=== PATIENT | female | born 1960 | race Caucasian/White ===

== ENCOUNTER → 2017-07-22 12:03 | Outpatient (CLI) | payer BC, SELFPAY ==
--- NOTE | 2017-07-22 | DI.US.S_ITS ---
PROCEDURE: US THYROID INDICATIONS: MULTINODULAR GOITER TECHNIQUE: Real-time scanning was performed of the thyroid gland, with image documentation. COMPARISON: None. FINDINGS: Right: Thyroid lobe measures 5.0 x 1.5 x 1.7 cm, and is homogeneous in echotexture. Left: Thyroid lobe measures 4.4 x 2.7 x 2.6 cm, and is homogenous in echotexture. Isthmus: 3.0 mm thick. Nodule number: 1 Location: Left mid inferior Size: 3.5 x 2.4 x 2.5 cm. Composition: Solid Echogenicity: 2 echoic Shape: wider than tall. Margins: Smooth Echogenic foci: None Total points: 4 ACR TI-RADS category: Moderately suspicious Nodule number: 2 Location: Right mid Size: 1.1 x 0.7 x 0.9 cm. Composition: Solid Echogenicity: Hypoechoic Shape: wider than tall. Margins: Smooth Echogenic foci: None Total points: 4 ACR TI-RADS category: Moderately suspicious IMPRESSION: Moderately suspicious bilateral thyroid nodules, the largest of which is on the left and given the size of the nodule fine needle aspiration is recommended. Recommended continued sonographic surveillance of the right thyroid nodule as below. ACR TI-RADS definitions and recommendations: TI-RADS 1 (benign): 0 points. FNA not needed. TI-RADS 2 (not suspicious): 2 points. FNA not needed. TI-RADS 3 (mildly suspicious): 3 points. * FNA if 2.5 cm or larger, follow up if 1.5 cm or larger (at 1, 3, and 5 years). TI-RADS 4 (moderately suspicious): 4-6 points. * FNA if 1.5 cm or larger, follow up if 1 cm or larger (at 1, 2, 3, and 5 years). TI-RADS 5 (highly suspicious): 7 points or more. * FNA if 1 cm or larger, follow up if 0.5 cm or larger (every year for 5 years). Dictated by: Shane SHANKAR Interpreted: Gordon Sorenson MD on 07/22/2017 at 14:09 Approved by: Gordon Sorenson M.D. on 07/22/2017 at 15:16
== END ==
PROVIDERS: PCP Family Medicine; Visit Provider Otolaryngology Facial Plastic Surgery
DX: E04.2 Nontoxic multinodular goiter (principal)
CPT/HCPCS: 76536

== ENCOUNTER → 2017-12-24 13:14 | Outpatient (CLI) | payer BC, SELFPAY ==
--- NOTE | 2017-12-24 | DI.MG.S_ITS ---
BILATERAL DIGITAL DIAGNOSTIC MAMMOGRAM 3D/2D: 12/24/2017 CLINICAL: Left breast pain. Comparison is made to exams dated: 07/04/2016 mammogram, 11/05/2014 mammogram, 04/30/2014 mammogram, and 10/30/2013 ultrasound - [facility]. There are scattered fibroglandular elements in both breasts. There are triangular markers overlying the skin of the inferior left breast and upper outer left breast/axilla at the site of the patient's reported pain and the patient's referring provider's reported palpable abnormalities. There is no underlying mammographic abnormality. No significant masses, calcifications, or other findings are seen in either breast. IMPRESSION: INCOMPLETE: NEEDS ADDITIONAL IMAGING EVALUATION No mammographic abnormality in the inferior left breast and upper outer left breast/axilla to correlate with the site of the patient's reported pain and the patient's referring provider's reported palpable abnormalities. Targeted diagnostic ultrasound recommended for further evaluation, which will be performed immediately following this exam. This exam was interpreted at Station ID: [id number]. NOTE: For mammograms, a report in lay terms will be sent to the patient. Approximately 15% of breast malignancies will not be visualized mammographically. In the management of a palpable breast mass, a negative mammogram must not discourage biopsy of a clinically suspicious lesion. Electronically Signed By: Ray Romero M.D. ecl/:12/24/2017 14:11:28 copy to: Isa Card MD, Dr. Isa Card letter sent: Additional Imaging Needed ACR BI-RADS Category 0: Incomplete 3340F
--- NOTE | 2017-12-24 | DI.US.S_ITS ---
LIMITED ULTRASOUND OF LEFT BREAST AND AXILLA: 12/24/2017 CLINICAL: Focal left breast pain. Comparison is made to exams dated: 12/24/2017 mammogram - [facility], 07/04/2016 mammogram, and 11/05/2014 mammogram - [facility]. Real-time and Doppler ultrasound of the left breast 6 o'clock, and upper outer left breast/axilla regions were performed. Dumont scale images of the real-time examination were reviewed. Targeted ultrasound of the areas of focal pain in the lower left breast and upper outer left breast/axilla was performed. There is an echogenic biopsy clip in the left breast at the 6 o'clock position 3 cm from the nipple, with no associated mass or abnormality. There is no mass or abnormality in the upper outer left breast/axilla. IMPRESSION: BENIGN 1) There is an echogenic biopsy clip in the left breast at the 6 o'clock position 3 cm from the nipple, with no associated mass or abnormality. It is unlikely for the biopsy clip to represent a source of pain. Clinical follow-up for further evaluation and management of symptoms suggested. 2) There is no mass or abnormality in the upper outer left breast/axilla. Clinical follow-up for further evaluation and management of symptoms suggested. 2) There is no sonographic evidence of malignancy in the imaged left breast. Return to annual mammogram screening schedule is recommended. These results and recommendations were discussed with the patient by Dr. Romero by telephone at 2:52pm pm on 12/24/17. The patient was advised to monitor her breasts and to return sooner for re-evaluation should she feel anything grow or change. This exam was interpreted at Station ID: [id number]. Electronically Signed By: Ray Romero M.D. ecl/:12/26/2017 08:28:57 copy to: Isa Card MD, Dr. Isa Card letter sent: Clinical Evaluation Ultrasound BI-RADS: 2 Benign
== END ==
PROVIDERS: PCP Family Medicine; Visit Provider Family Medicine
DX: R92.8 Other abnormal and inconclusive findings on diagnostic imaging of breast (principal); N64.4 Mastodynia
CPT/HCPCS: 76642; 77066; G0279

== ENCOUNTER → 2018-07-01 07:33 | Outpatient (CLI) | payer BC, SELFPAY ==
--- NOTE | 2018-07-01 | DI.US.S_ITS ---
PROCEDURE: US THYROID INDICATIONS: GOITER MULTINODULAR TECHNIQUE: Real-time scanning was performed of the thyroid gland, with image documentation. COMPARISON: [facility], US, US THYROID, 07/22/2017, 12:18. FINDINGS: Right: Thyroid lobe measures 5 x 1.4 x 1.7 cm. Left: Thyroid lobe measures 5.8 x 2.7 x 2.6 cm. Isthmus: 2 mm thick. Nodule number: 1 Location: Left mid thyroid Size: 3.7 x 2.8 x 2.6 cm, previously measuring 3.5 x 2.4 x 2.5. Composition: Solid Echogenicity: Hypoechoic Shape: wider than tall. Margins: Smooth Echogenic foci: None Total points: 4 ACR TI-RADS category: 4, moderately suspicious. Nodule number: 2 Location: Right mid thyroid Size: 1 x 0.6 x 0.9 cm, previously measuring 1.1 x 0.7 x 0.9 cm. Composition: Solid Echogenicity: Hypoechoic Shape: wider than tall. Margins: Smooth Echogenic foci: None Total points: 4 ACR TI-RADS category: 4, moderately suspicious. IMPRESSION: Bilateral thyroid nodules are seen, which are stable compared to the prior. Normally, an ultrasound guided thyroid biopsy of the dominant nodule on the left would be recommended. However, a history is given that this nodule was previously biopsied with benign results. Please correlate with precise patient clinical records. Please consider annual follow up, as clinically appropriate. ACR TI-RADS definitions and recommendations: TI-RADS 1 (benign): 0 points. FNA not needed. TI-RADS 2 (not suspicious): 2 points. FNA not needed. TI-RADS 3 (mildly suspicious): 3 points. * FNA if 2.5 cm or larger, follow up if 1.5 cm or larger (at 1, 3, and 5 years). TI-RADS 4 (moderately suspicious): 4-6 points. * FNA if 1.5 cm or larger, follow up if 1 cm or larger (at 1, 2, 3, and 5 years). TI-RADS 5 (highly suspicious): 7 points or more. * FNA if 1 cm or larger, follow up if 0.5 cm or larger (every year for 5 years). Dictated by: Nilson Berg M.D. on 07/01/2018 at 8:17 Approved by: Nilson Berg M.D. on 07/01/2018 at 8:20
== END ==
PROVIDERS: PCP Family Medicine; Visit Provider Otolaryngology Facial Plastic Surgery
DX: E04.2 Nontoxic multinodular goiter (principal)
CPT/HCPCS: 76536

== ENCOUNTER → 2018-12-23 16:58 | Outpatient (CLI) | payer BC, SELFPAY ==
--- NOTE | 2018-12-23 17:01 | DI.MG.S_ITS ---
BILATERAL DIGITAL SCREENING MAMMOGRAM 3D/2D WITH CAD: 12/23/2018 CLINICAL: Routine screening. Family history of breast cancer. Comparison is made to exams dated: 12/24/2017 mammogram - [facility], 07/04/2016 mammogram, and 11/05/2014 mammogram - [facility]. The tissue of both breasts is heterogeneously dense. This may lower the sensitivity of mammography. Current study was also evaluated with a Computer Aided Detection (CAD) system. There is a 0.6 cm equal density asymmetry in the left breast posterior depth lateral region seen on the craniocaudal view only. This is more prominent. No other significant masses, calcifications, or other findings are seen in either breast. IMPRESSION: INCOMPLETE: NEEDS ADDITIONAL IMAGING EVALUATION The 0.6 cm equal density asymmetry in the left breast is indeterminate. Additional views with possible ultrasound are recommended. This exam was interpreted at Station ID: [id number]. NOTE: For mammograms, a report in lay terms will be sent to the patient. Approximately 15% of breast malignancies will not be visualized mammographically. In the management of a palpable breast mass, a negative mammogram must not discourage biopsy of a clinically suspicious lesion. Electronically Signed By: Leland delgado/tristin:12/24/2018 07:34:39 copy to: Isa Card MD, Dr. Isa Card letter sent: Additional Imaging Needed ACR BI-RADS Category 0: Incomplete 3340F
== END ==
PROVIDERS: PCP Family Medicine; Visit Provider Family Medicine
DX: Z12.31 Encounter for screening mammogram for malignant neoplasm of breast (principal); Z80.3 Family history of malignant neoplasm of breast
CPT/HCPCS: 77063; 77067

== ENCOUNTER → 2019-01-21 13:55 | Outpatient (CLI) | payer BC, SELFPAY ==
--- NOTE | 2019-01-21 | DI.US.S_ITS ---
ULTRASOUND OF LEFT BREAST: 01/21/2019 CLINICAL: Patient returns today to evaluate a focal asymmetry in the left breast on screening mammo, not seen on diagnostic mammo. Patient insists on U/S. Comparison is made to exams dated: 01/21/2019 mammogram, 12/23/2018 mammogram, 12/24/2017 ultrasound, and 12/24/2017 mammogram - [facility]. Color flow and real-time ultrasound of the left breast were performed. Dumont scale images of the real-time examination were reviewed. No significant abnormalities were seen sonographically in the left breast. IMPRESSION: NEGATIVE There is no sonographic evidence of malignancy. There is no abnormality seen in the right breast to correspond with the area of concern /mammography finding which likely represented normal fibroglandular tissue. A 1 year screening mammogram is recommended. This exam was interpreted at Station ID: [id number]. Electronically Signed By: Leland Leon M.D. aty/:01/21/2019 14:54:04 copy to: Isa Card MD, Dr. Isa Card letter sent: Normal Exam Ultrasound BI-RADS: 1 Negative
--- NOTE | 2019-01-21 | DI.MG.S_ITS ---
UNILATERAL LEFT DIGITAL DIAGNOSTIC MAMMOGRAM 3D/2D WITH ADDITIONAL VIEWS: 01/21/2019 CLINICAL: Additional evaluation requested from prior study. Comparison is made to exams dated: 12/23/2018 mammogram, 12/24/2017 mammogram - [facility], and 07/04/2016 mammogram - [facility]. The tissue of left breast is heterogeneously dense. This may lower the sensitivity of mammography. The 0.6 cm equal density asymmetry in the left breast posterior depth lateral region seen on the craniocaudal view only is no longer seen and likely represented summation artifact. No other significant masses or calcifications are seen in the breast. IMPRESSION: INCOMPLETE: NEEDS ADDITIONAL IMAGING EVALUATION An ultrasound is recommended to confirm the no longer seen equal density asymmetry in the left breast posterior depth lateral region seen on the craniocaudal view only. The ultrasound is scheduled to immediately follow this exam. This exam was interpreted at Station ID: [id number]. NOTE: For mammograms, a report in lay terms will be sent to the patient. Approximately 15% of breast malignancies will not be visualized mammographically. In the management of a palpable breast mass, a negative mammogram must not discourage biopsy of a clinically suspicious lesion. Electronically Signed By: Leland Leon M.D. aty/:01/21/2019 14:51:03 copy to: Isa Card MD, Dr. Isa Card ACR BI-RADS Category 0: Incomplete 3340F
== END ==
PROVIDERS: PCP Family Medicine; Visit Provider Family Medicine
DX: R92.8 Other abnormal and inconclusive findings on diagnostic imaging of breast (principal)
CPT/HCPCS: 76642; 77065; G0279

== ENCOUNTER → 2019-08-19 10:38 | Outpatient (CLI) | payer BC, SELFPAY ==
--- NOTE | 2019-08-19 | DI.US.S_ITS ---
PROCEDURE: US THYROID INDICATIONS: NONTOXIC SINGLE THYROID NODULE TECHNIQUE: Real-time scanning was performed of the thyroid gland, with image documentation. COMPARISON: [facility], US, US THYROID, 07/01/2018, 7:55. FINDINGS: Right: Thyroid lobe measures 5.1 x 1.7 x 1.7 cm, and is homogeneous in echotexture. Left: Thyroid lobe measures 5.8 x 2.7 x 2.8 cm, and is homogenous in echotexture. Isthmus: 2.8 mm thick. Nodule number: 1 Location: Left mid Size: Unchanged at 2.8 x 3.7 x 2.6 cm. Composition: Solid Echogenicity: Hypoechoic Shape: wider than tall. Margins: Smooth Echogenic foci: None Total points: 4 ACR TI-RADS category: Moderately suspicious Nodule number: 2 Location: Right mid Size: Unchanged 1.0 x .6 x 0.9 cm. Composition: Solid Echogenicity: Hypoechoic Shape: wider than tall. Margins: Smooth Echogenic foci: None Total points: 4 ACR TI-RADS category: Moderately suspicious Nodule number: 3 Location: Right inferior Size: 0.7 x 0.5 x 0.7 cm. Composition: Spongiform Echogenicity: S hypoechoic hape: wider than tall. Margins: Smooth Echogenic foci: Internal punctate echogenic foci Total points: 5 ACR TI-RADS category: Moderately suspicious IMPRESSION: Stable appearance of bilateral thyroid nodules and there is a new right inferior thyroid nodule measuring up to 7 mm. Recommend continued followup ultrasound as detailed below. ACR TI-RADS definitions and recommendations: TI-RADS 1 (benign): 0 points. FNA not needed. TI-RADS 2 (not suspicious): 2 points. FNA not needed. TI-RADS 3 (mildly suspicious): 3 points. * FNA if 2.5 cm or larger, follow up if 1.5 cm or larger (at 1, 3, and 5 years). TI-RADS 4 (moderately suspicious): 4-6 points. * FNA if 1.5 cm or larger, follow up if 1 cm or larger (at 1, 2, 3, and 5 years). TI-RADS 5 (highly suspicious): 7 points or more. * FNA if 1 cm or larger, follow up if 0.5 cm or larger (every year for 5 years). Dictated by: Shane SHANKAR Interpreted: Isaac Ramirez MD on 08/19/2019 at 13:29 Approved by: Isaac Ramirez M.D. on 08/19/2019 at 14:02
== END ==
PROVIDERS: PCP Family Medicine; Referring Provider Family Medicine; Visit Provider Otolaryngology Facial Plastic Surgery
DX: E04.2 Nontoxic multinodular goiter (principal)
CPT/HCPCS: 76536

== ENCOUNTER → 2020-04-02 12:41 | Outpatient (CLI) | payer BC, SELFPAY ==
--- NOTE | 2020-04-02 | DI.MG.S_ITS ---
BILATERAL DIGITAL SCREENING MAMMOGRAM 3D/2D WITH CAD: 04/02/2020 CLINICAL: Routine screening. Family history of breast cancer. Comparison is made to exams dated: 12/23/2018 mammogram, 12/24/2017 mammogram - [facility], and 07/04/2016 mammogram - [facility]. The tissue of both breasts is heterogeneously dense. This may lower the sensitivity of mammography. Current study was also evaluated with a Computer Aided Detection (CAD) system. No significant masses, calcifications, or other findings are seen in either breast. There has been no significant interval change. IMPRESSION: NEGATIVE There is no mammographic evidence of malignancy. A 1 year screening mammogram is recommended. This exam was interpreted at Station ID: [id number]. NOTE: For mammograms, a report in lay terms will be sent to the patient. Approximately 15% of breast malignancies will not be visualized mammographically. In the management of a palpable breast mass, a negative mammogram must not discourage biopsy of a clinically suspicious lesion. Electronically Signed By: Isaac Ramirez M.D., jr/tristin:04/04/2020 08:46:38 copy to: Isa Card MD, Dr. Isa Card letter sent: Normal Exam ACR BI-RADS Category 1: Negative 3341F
== END ==
PROVIDERS: PCP Family Medicine; Referring Provider Family Medicine; Visit Provider Family Medicine
DX: Z12.31 Encounter for screening mammogram for malignant neoplasm of breast (principal); Z80.3 Family history of malignant neoplasm of breast
CPT/HCPCS: 77063; 77067

== ENCOUNTER → 2020-07-21 09:38 | Outpatient (CLI) | payer BC, SELFPAY ==
[2020-07-21 20:08] LABS: Add Manual Diff / Slide Review NO; Basophils Absolute Auto 0 /uL (0-100); Basophils Percent Auto 0.7 % (0-2); Eosinophils Absolute Auto 100 /uL (0-450); Eosinophils Percent Auto 2.4 % (2-4); Hematocrit 42.8 % (36-46); Hemoglobin 13.6 g/dL (12.0-16.0); Lymphocytes Absolute Auto 1700 /uL (1100-4500); Lymphocytes Percent Auto 30.4 % (25-40); Mean Corpuscular HGB Conc 31.8 % (30-36); Mean Corpuscular Hemoglobin 28.7 PG (26-34); Mean Corpuscular Volume 90.4 fL (80-100); Monocytes Absolute Auto 500 /uL (0-900); Monocytes Percent Auto 9.2 % (3-14); Neutrophils Absolute Auto 3200 /uL (1500-7000); Neutrophils Percent Auto 57.3 % (50-75); Platelet Count 295 X10^3/uL (150-400); Red Blood Cell Count 4.74 X10^6/uL (4.0-5.2); Red Cell Distribution Width 13.9 % (11.6-14.8); White Blood Cell Count 5.6 X10^3/uL (4.5-11.0)
[2020-07-21 20:28] LABS: Alanine Aminotransferase 40 IU/L (<35); Albumin 4.2 g/dL (3.5-5.0); Albumin Globulin Ratio 1.5 (1.0-2.8); Alkaline Phosphatase 56 U/L (38-126); Aspartate Aminotransferase 37 IU/L (14-36); BUN Creatinine Ratio 21.6 (6-22); Bilirubin Total 0.4 mg/dL (0.2-1.3); Blood Urea Nitrogen 11 mg/dL (7-17); Calcium 10.2 mg/dL (8.4-10.2); Carbon Dioxide 29 mmol/L (22-32); Chloride 104 mmol/L (98-107); Cholesterol 185 mg/dL (140-199); Creatine Kinase 48 U/L (30-135); Estimated Glomerular Filt Rate > 60.0 mL/min (>60); Globulin 2.8 g/dL (1.7-4.1); Glucose 95 mg/dL (70-100); HDL Cholesterol 63 mg/dL (40-60); HEMOLYSIS < 15 (0-50); LDL Cholesterol Calculated 93 mg/dL (<100); Potassium 4.5 mmol/L (3.4-5.1); Sodium 140 mmol/L (137-145); Triglycerides 143 mg/dL (35-150)
[2020-07-21 20:35] LABS: Free T3, Triiodothyronine Free 3.97 pg/mL (2.77-5.27)
[2020-07-21 20:49] LABS: TSH w/ Reflex to FT4 0.79 uIU/mL (0.47-4.68)
== END ==
PROVIDERS: PCP Family Medicine; Visit Provider Physician Assistant
DX: E03.9 Hypothyroidism, unspecified (principal); E78.5 Hyperlipidemia, unspecified; Z86.2 Personal history of diseases of the blood and blood-forming organs and certain disorders involving the immune mechanism
CPT/HCPCS: 80053; 80061; 82550; 84443; 84481; 85025

== ENCOUNTER → 2020-11-21 08:33 | Outpatient (CLI) | payer BC, SELFPAY ==
[2020-11-21 19:13] LABS: Alanine Aminotransferase 29 IU/L (<35); Albumin 4.2 g/dL (3.5-5.0); Albumin Globulin Ratio 1.5 (1.0-2.8); Alkaline Phosphatase 58 U/L (38-126); Aspartate Aminotransferase 33 IU/L (14-36); Bilirubin Total 0.4 mg/dL (0.2-1.3); Blood Urea Nitrogen 14 mg/dL (7-17); Calcium 9.9 mg/dL (8.4-10.2); Carbon Dioxide 31 mmol/L (22-32); Chloride 101 mmol/L (98-107); Cholesterol 252 mg/dL (140-199); Estimated Glomerular Filt Rate > 60.0 mL/min (>60); Globulin 2.8 g/dL (1.7-4.1); Glucose 94 mg/dL (70-100); HDL Cholesterol 57 mg/dL (40-60); HEMOLYSIS < 15 (0-50); LDL Cholesterol Calculated 146 mg/dL (<100); Potassium 4.6 mmol/L (3.4-5.1); Sodium 139 mmol/L (137-145); Triglycerides 245 mg/dL (35-150)
== END ==
PROVIDERS: PCP Physician Assistant; Referring Provider Physician Assistant; Visit Provider Physician Assistant
DX: R74.8 Abnormal levels of other serum enzymes (principal); E78.5 Hyperlipidemia, unspecified
CPT/HCPCS: 80053; 80061

== ENCOUNTER → 2021-01-19 09:38 | Outpatient (CLI) | payer BC, SELFPAY ==
[2021-01-19 19:01] LABS: Cholesterol 212 mg/dL (140-199); HDL Cholesterol 55 mg/dL (40-60); LDL Cholesterol Calculated 86 mg/dL (<100); Triglycerides 355 mg/dL (35-150)
== END ==
PROVIDERS: PCP Physician Assistant; Visit Provider Family Medicine
DX: E78.5 Hyperlipidemia, unspecified (principal)
CPT/HCPCS: 80061

== ENCOUNTER → 2021-02-07 10:37 | Outpatient (CLI) | payer BC, SELFPAY ==
--- NOTE | 2021-02-07 10:39 | DI.US.S_ITS ---
PROCEDURE: US THYROID INDICATIONS: NODULES TECHNIQUE: Real-time scanning was performed of the thyroid gland, with image documentation. COMPARISON: [facility], US, US THYROID, 07/22/2017, 12:18. [facility], US, US THYROID, 07/01/2018, 7:55. [facility], US, US THYROID, 08/19/2019, 11:02. FINDINGS: Right: Thyroid lobe measures 4.3 x 1.2 x 1.6 cm. Left: Thyroid lobe measures 5.6 x 2.9 x 3.1 cm. Isthmus: 2.5 mm thick. Nodule number: 1 Location: Left mid thyroid Size: 3.9 x 2.3 x 2.8 cm, prior 3.7 x 2.8 x 2.6 cm. Composition: Solid Echogenicity: Hypoechoic Shape: wider than tall. Margins: Smooth Echogenic foci: None. Total points: 4 ACR TI-RADS category: 4 Nodule number: 2 Location: Right mid thyroid Size: 0.8 x 0.4 x 0.8 cm, prior 1 x 0.6 x 0.9 cm. Composition: Solid Echogenicity: Hypoechoic Shape: wider than tall. Margins: Smooth Echogenic foci: None Total points: 4 ACR TI-RADS category: 4 Nodule number: 3 Location: Right inferior thyroid Size: 0.8 x 0.5 x 0.8 cm, prior 0.7 x 0.5 x 0.7cm. Composition: Spongiform Echogenicity: Hypoechoic Shape: Wider than tall Margins: Smooth Echogenic foci: None. Total points: 3 ACR TI-RADS category: 3 IMPRESSION: Bilateral thyroid nodules are seen. The most suspicious of these nodules is seen within the left mid thyroid, which is similar to the prior examinations. By published criteria, a follow-up study in 2 years would be recommended for the left-sided nodule. ACR TI-RADS definitions and recommendations: TI-RADS 1 (benign): 0 points. FNA not needed. TI-RADS 2 (not suspicious): 2 points. FNA not needed. TI-RADS 3 (mildly suspicious): 3 points. * FNA if 2.5 cm or larger, follow up if 1.5 cm or larger (at 1, 3, and 5 years). TI-RADS 4 (moderately suspicious): 4-6 points. * FNA if 1.5 cm or larger, follow up if 1 cm or larger (at 1, 2, 3, and 5 years). TI-RADS 5 (highly suspicious): 7 points or more. * FNA if 1 cm or larger, follow up if 0.5 cm or larger (every year for 5 years). Dictated by: Nilson Berg M.D. on 02/07/2021 at 10:47 Approved by: Nilson Berg M.D. on 02/07/2021 at 10:51
== END ==
PROVIDERS: PCP Family Medicine; Referring Provider Family Medicine; Visit Provider Family Medicine
DX: E04.2 Nontoxic multinodular goiter (principal)
CPT/HCPCS: 76536

== ENCOUNTER → 2021-04-03 10:36 | Outpatient (CLI) | payer BC, SELFPAY ==
[2021-04-03 11:46] LABS: Add Manual Diff / Slide Review NO; Basophils Absolute Auto 100 /uL (0-100); Basophils Percent Auto 1.2 % (0-2); Eosinophils Absolute Auto 100 /uL (0-450); Eosinophils Percent Auto 1.9 % (2-4); Hematocrit 41.3 % (36-46); Hemoglobin 13.8 g/dL (12.0-16.0); Lymphocytes Absolute Auto 1900 /uL (1100-4500); Lymphocytes Percent Auto 36.7 % (25-40); Mean Corpuscular HGB Conc 33.3 % (30-36); Mean Corpuscular Hemoglobin 29.1 PG (26-34); Mean Corpuscular Volume 87.5 fL (80-100); Monocytes Absolute Auto 400 /uL (0-900); Monocytes Percent Auto 8.3 % (3-14); Neutrophils Absolute Auto 2700 /uL (1500-7000); Neutrophils Percent Auto 51.9 % (50-75); Platelet Count 343 X10^3/uL (150-400); Red Blood Cell Count 4.72 X10^6/uL (4.0-5.2); Red Cell Distribution Width 13.4 % (11.6-14.8); White Blood Cell Count 5.2 X10^3/uL (4.5-11.0)
[2021-04-03 12:13] LABS: Alanine Aminotransferase 34 IU/L (<35); Albumin 5.1 g/dL (3.5-5.0); Albumin Globulin Ratio 1.8 (1.0-2.8); Alkaline Phosphatase 50 U/L (38-126); Aspartate Aminotransferase 32 IU/L (14-36); BUN Creatinine Ratio 21.7 (6-22); Bilirubin Total 0.6 mg/dL (0.2-1.3); Blood Urea Nitrogen 13 mg/dL (7-17); Calcium 9.9 mg/dL (8.4-10.2); Carbon Dioxide 29 mmol/L (22-32); Chloride 102 mmol/L (98-107); Cholesterol 193 mg/dL (140-199); Estimated Glomerular Filt Rate > 60.0 mL/min (>60); Globulin 2.9 g/dL (1.7-4.1); Glucose 99 mg/dL (70-100); HDL Cholesterol 84 mg/dL (40-60); Potassium 4.8 mmol/L (3.4-5.1); Sodium 138 mmol/L (137-145); Triglycerides 218 mg/dL (35-150)
[2021-04-03 12:14] LABS: HEMOLYSIS < 15 (0-50); LDL Cholesterol Calculated 65 mg/dL (<100)
== END ==
PROVIDERS: PCP Family Medicine; Referring Provider Family Medicine; Visit Provider Family Medicine
DX: R03.0 Elevated blood-pressure reading, without diagnosis of hypertension (principal)
CPT/HCPCS: 36415; 80053; 80061; 85025

== ENCOUNTER → 2021-05-16 11:38 | Outpatient (CLI) | payer BC, SELFPAY ==
--- NOTE | 2021-05-16 | DI.MG.S_ITS ---
BILATERAL DIGITAL DIAGNOSTIC MAMMOGRAM 3D/2D: 05/16/2021 CLINICAL: Diffuse left breast pain. Comparison is made to exams dated: 04/02/2020 mammogram, 01/21/2019 ultrasound, 01/21/2019 mammogram, 12/23/2018 mammogram, 12/24/2017 mammogram, and 12/24/2017 ultrasound - . The tissue of both breasts is heterogeneously dense. This may lower the sensitivity of mammography. There is a biopsy clip in the left breast. No significant masses, calcifications, or other findings are seen in either breast. IMPRESSION: NEGATIVE There is no abnormality seen in the left breast to correspond with the pain in the inferior aspect, however, clinical followup is recommended. There is no mammographic evidence of malignancy. A 1 year screening mammogram is recommended. This exam was interpreted at Station ID: [id number]. NOTE: For mammograms, a report in lay terms will be sent to the patient. Approximately 15% of breast malignancies will not be visualized mammographically. In the management of a palpable breast mass, a negative mammogram must not discourage biopsy of a clinically suspicious lesion. Electronically Signed By: Fei escobedo/tristin:05/16/2021 12:23:02 copy to: Isa Card MD, Dr. Isa Card letter sent: Clinical Evaluation ACR BI-RADS Category 1: Negative 3341F
== END ==
PROVIDERS: PCP Family Medicine; Referring Provider Family Medicine; Visit Provider Family Medicine
DX: N64.4 Mastodynia (principal)
CPT/HCPCS: 77066; G0279

== ENCOUNTER → 2022-01-26 09:08 | Outpatient (CLI) | payer BC, SELFPAY ==
[2022-01-26 11:13] LABS: TSH w/ Reflex to FT4 0.25 uIU/mL (0.47-4.68)
[2022-01-26 12:58] LABS: Free T4, Direct Thyroxine 1.81 ng/dL (0.78-2.19)
== END ==
PROVIDERS: PCP Family Medicine; Referring Provider Family Medicine; Visit Provider Family Medicine
DX: E03.9 Hypothyroidism, unspecified (principal)
CPT/HCPCS: 36415; 84439; 84443

== ENCOUNTER → 2022-02-16 08:53 | Outpatient (CLI) | payer BC, SELFPAY ==
[2022-02-16 09:27] LABS: Add Manual Diff / Slide Review NO; Basophils Absolute Auto 100 /uL (0-100); Eosinophils Absolute Auto 100 /uL (0-450); Eosinophils Percent Auto 1.5 % (2-4); Hematocrit 40.7 % (36-46); Hemoglobin 13.4 g/dL (12.0-16.0); Lymphocytes Absolute Auto 2100 /uL (1100-4500); Lymphocytes Percent Auto 37.7 % (25-40); Mean Corpuscular HGB Conc 32.9 % (30-36); Mean Corpuscular Hemoglobin 28.9 PG (26-34); Monocytes Absolute Auto 500 /uL (0-900); Monocytes Percent Auto 8.9 % (3-14); Neutrophils Absolute Auto 2800 /uL (1500-7000); Neutrophils Percent Auto 50.9 % (50-75); Platelet Count 303 X10^3/uL (150-400); Red Blood Cell Count 4.62 X10^6/uL (4.0-5.2); Red Cell Distribution Width 14.1 % (11.6-14.8); White Blood Cell Count 5.6 X10^3/uL (4.5-11.0)
[2022-02-16 09:50] LABS: Erythrocyte Sedimentation Rate 8 MM/HR (0-20)
[2022-02-16 10:04] LABS: Alanine Aminotransferase 25 IU/L (<35); Albumin 4.5 g/dL (3.5-5.0); Albumin Globulin Ratio 1.5 (1.0-2.8); Alkaline Phosphatase 49 U/L (38-126); Aspartate Aminotransferase 24 IU/L (14-36); BUN Creatinine Ratio 20.4 (6-22); Bilirubin Total 0.5 mg/dL (0.2-1.3); Blood Urea Nitrogen 11 mg/dL (7-17); C-Reactive Protein Quant < 0.5 mg/dL (<1.0); Calcium 9.6 mg/dL (8.4-10.2); Carbon Dioxide 30 mmol/L (22-32); Chloride 99 mmol/L (98-107); Cholesterol 290 mg/dL (140-199); Estimated Glomerular Filt Rate > 60 mL/min (>60); Glucose 97 mg/dL (80-110); HDL Cholesterol 67 mg/dL (40-60); HEMOLYSIS < 15 (0-50); LDL Cholesterol Calculated 193 mg/dL (<100); Potassium 4.3 mmol/L (3.4-5.1); Sodium 137 mmol/L (137-145); Total Protein 7.5 g/dL (6.3-8.2); Triglycerides 151 mg/dL (35-150)
== END ==
PROVIDERS: PCP Family Medicine; Referring Provider Family Medicine; Visit Provider Family Medicine
DX: E03.9 Hypothyroidism, unspecified (principal); E04.2 Nontoxic multinodular goiter; E78.5 Hyperlipidemia, unspecified; I10 Essential (primary) hypertension; R14.0 Abdominal distension (gaseous); R68.84 Jaw pain; R74.8 Abnormal levels of other serum enzymes
CPT/HCPCS: 36415; 80053; 80061; 85025; 85651; 86140

== ENCOUNTER → 2022-08-01 09:10 | Outpatient (CLI) | payer BC, SELFPAY ==
[2022-08-01 10:46] LABS: Erythrocyte Sedimentation Rate 7 MM/HR (0-20)
[2022-08-01 11:08] LABS: C-Reactive Protein Quant < 0.5 mg/dL (<1.0)
== END ==
PROVIDERS: PCP Family Medicine; Referring Provider Family Medicine; Visit Provider Family Medicine
DX: R22.9 Localized swelling, mass and lump, unspecified (principal)
CPT/HCPCS: 36415; 85651; 86140

== ENCOUNTER → 2022-08-01 10:19 | Outpatient (CLI) | payer BC, SELFPAY ==
--- NOTE | 2022-08-01 | DI.US.S_ITS ---
LIMITED ULTRASOUND OF LEFT BREAST AND AXILLA: 08/01/2022 CLINICAL: Focal left breast pain. Comparison is made to exams dated: 08/01/2022 mammogram, 05/16/2021 mammogram, 04/02/2020 mammogram, 01/21/2019 ultrasound, 01/21/2019 mammogram, and 12/23/2018 mammogram - [facility]. Color flow and real-time ultrasound of the left breast upper inner and lower outer quadrants and axilla regions were performed. Dumont scale images of the real-time examination were reviewed. No significant abnormalities were seen sonographically in the left breast or the left axilla. IMPRESSION: NEGATIVE There is no sonographic evidence of malignancy. Exam findings were conveyed to the patient. Patient is advised to monitor for significant change. Clinical follow-up as needed. A 1 year screening mammogram is recommended. This exam was interpreted at Station ID: [id number]. Electronically Signed By: Suman Davidson M.D. slc/:08/01/2022 11:39:47 copy to: Isa Card MD, Dr. Isa Card letter sent: Normal Exam Ultrasound BI-RADS: 1 Negative
--- NOTE | 2022-08-01 | DI.MG.S_ITS ---
BILATERAL DIGITAL DIAGNOSTIC MAMMOGRAM 3D/2D: 08/01/2022 CLINICAL: Left breast pain. Comparison is made to exams dated: 05/16/2021 mammogram, 04/02/2020 mammogram, 01/21/2019 ultrasound, 01/21/2019 mammogram, and 12/23/2018 mammogram - [facility]. Both breasts are heterogeneously dense, which may obscure small masses (category c / 51-75% glandular tissue). No significant masses, calcifications, or other findings are seen in either breast. IMPRESSION: INCOMPLETE: NEEDS ADDITIONAL IMAGING EVALUATION No mammographic evidence of malignancy. A targeted ultrasound is recommended and will immediately follow. Based on the Tyrer Cuzick model (a risk assessment model) the patient's lifetime risk is 16.3% and her 10 year risk is 7.0%. According to the ACR, ACS, and NCCN guidelines, an annual breast MRI exam along with mammogram is recommended if the patient's lifetime risk is 20% or greater. This exam was interpreted at Station ID: [id number]. NOTE: For mammograms, a report in lay terms will be sent to the patient. Approximately 15% of breast malignancies will not be visualized mammographically. In the management of a palpable breast mass, a negative mammogram must not discourage biopsy of a clinically suspicious lesion. Electronically Signed By: Suman Davidson M.D. slc/:08/01/2022 11:36:49 copy to: Isa Card MD, Dr. Isa Card ACR BI-RADS Category 0: Incomplete 3340F
== END ==
PROVIDERS: PCP Family Medicine; Referring Provider Family Medicine; Visit Provider Family Medicine
DX: R92.2 Inconclusive mammogram; N64.4 Mastodynia
CPT/HCPCS: 36415; 76642; 77066; 85651; 86140; G0279

== ENCOUNTER → 2022-08-21 07:49 | Outpatient (CLI) | payer BC, SELFPAY ==
--- NOTE | 2022-08-21 | DI.MRI.S_ITS ---
PROCEDURE: MR CERVICAL SPINE WO CON INDICATIONS: SWELLING OF SOFT TISSUE OF CERVICAL SPINE TECHNIQUE: Noncontrast sagittal T1 spin echo and T2 fast spin echo, sagittal STIR, foraminal oblique sagittal T2 fast spin echo, and axial gradient echo or T2 fast spin echo through the cervical spine. COMPARISON: [facility], US, US FINE NEEDLE ASPIRATION THYROID, 04/25/2022, 11:25. [facility] Ultrasound, US, US THYROID, 03/08/2022, 11:15. FINDINGS: Image quality: Excellent. Alignment and Curvature: There is straightening of the normal cervical lordosis. No focal AP alignment abnormality is seen. Bone Marrow: Marrow demonstrates normal overall signal. Spinal Cord: Visualized spinal cord has normal size and signal. No cerebellar tonsillar herniation. Paraspinous Soft Tissues: A 3.3 cm left thyroid nodule can be seen. Prevertebral soft tissues are normal in thickness. C2-C3: No significant abnormality is seen. C3-C4: The disc height is well-preserved. Loss of disc signal is seen at this level. Mild generalized disc bulge is seen. There is at least moderate right-sided and mild left-sided facet arthropathy seen. There is moderate right-sided and minimal left-sided neural foraminal narrowing. Mild to moderate central canal narrowing is seen. C4-C5: Mild loss of disc height and disc signal can be seen. A mild degree of generalized disc osteophyte complex is seen. Mild to moderate facet hypertrophy is seen. There is minimal right-sided and moderate left-sided neural foraminal narrowing. Mild central canal narrowing is seen. C5-C6: Moderate loss of disc height is seen. Loss of disc signal is seen. A remote appearing Schmorl's node can be seen along the superior endplate of the C6 vertebral body. Moderate generalized disc osteophyte complex is seen. Moderate facet joint hypertrophy is seen. There is at least moderate bilateral neural foraminal narrowing seen, right worse than left. Moderate central canal narrowing is seen. There is associated mass effect upon the ventral spinal cord. C6-C7: The disc height is well-preserved. Loss of disc signal is seen at this level. Mild disc osteophyte complex is seen, with a mild central disc protrusion. Mild to moderate facet is seen. No significant neural foraminal narrowing can be seen. Mild central canal narrowing is seen. C7-T1: Mild loss of disc height is seen. Loss of disc signal is seen. Mild to moderate disc osteophyte complex is seen, which is eccentric to the right. Mild to moderate facet hypertrophy can be seen. No significant neural foraminal or central canal narrowing can be seen. IMPRESSION: Multiple levels of cervical spine degenerative change can be seen, which are overall worst at the C5-C6 level. 3.3 cm left thyroid nodule seen, which has been previously biopsied. Dictated by: Nilson Berg M.D. on 08/21/2022 at 12:27 Approved by: Nilson Berg M.D. on 08/21/2022 at 12:32
== END ==
PROVIDERS: PCP Family Medicine; Referring Provider Family Medicine; Visit Provider Family Medicine
DX: M47.812 Spondylosis without myelopathy or radiculopathy, cervical region (principal); R22.1 Localized swelling, mass and lump, neck; E04.1 Nontoxic single thyroid nodule
CPT/HCPCS: 72141

== ENCOUNTER → 2022-09-13 09:18 | Outpatient (CLI) | payer BC, SELFPAY ==
[2022-09-13 10:45] LABS: Cholesterol 184 mg/dL (140-199); HDL Cholesterol 66 mg/dL (40-60); LDL Cholesterol Calculated 100 mg/dL (<100); Triglycerides 89 mg/dL (35-150)
== END ==
PROVIDERS: PCP Family Medicine; Referring Provider Otolaryngology Facial Plastic Surgery; Visit Provider Otolaryngology Facial Plastic Surgery
DX: E04.2 Nontoxic multinodular goiter (principal); M25.519 Pain in unspecified shoulder
CPT/HCPCS: 36415; 80061; 84436

== ENCOUNTER → 2022-11-08 09:45 | Outpatient (CLI) | payer OTHER, SELFPAY ==
--- NOTE | 2022-11-08 | DI.RAD.S_ITS ---
PROCEDURE: XR CERVICAL SPINE 4V OR 5V INDICATIONS: Radiculopathy, cervical region TECHNIQUE: 5 views of the cervical spine were acquired. COMPARISON: None. FINDINGS: Bones: No fractures or dislocations to the T1 level. Degenerative disc disease at C5-6 with disc space narrowing and anterior osteophytes. No suspicious bony lesions. There is leftward curvature of the cervical spine. There is normal range of motion between flexion and extension, with preserved normal bony alignment. Soft tissues: Prevertebral soft tissues are normal in thickness. IMPRESSION: Degenerative disc disease at C5-6. Dictated by: Tolu Pinedo M.D. on 11/08/2022 at 10:18 Approved by: Tolu Pinedo M.D. on 11/08/2022 at 10:21
--- NOTE | 2022-11-08 | DI.RAD.S_ITS ---
Bone Density Report Name: JACKY BAEZ Age: 62 Sex: Female Ethnicity: White Date of : 1960 Indication: postmenopausal; screening for osteoporosis; Referring Provider: JENNIFER BRADY Study: Bone densitometry was performed. Exam Date: November 08, 2022 Accession number: [id number] Bone Density: Region BMD T-score Z-score Classification AP Spine(L1-L4) 0.939 -1.0 0.5 Normal Femoral Neck (Left) 0.611 -2.1 -0.8 Osteopenia Total Hip (Left) 0.805 -1.1 -0.1 Osteopenia Femoral Neck (Right) 0.658 -1.7 -0.4 Osteopenia Total Hip (Right) 0.811 -1.1 -0.1 Osteopenia Total Hip Mean 0.808 -1.1 -0.1 Osteopenia World Health Organization criteria for BMD impression classify patients as: Normal (T-score at or above -1.0), Osteopenia (T-score between -1.0 and -2.5), or Osteoporosis (T-score at or below -2.5). 10-year Fracture Risk(1): Major Osteoporotic Fracture 9.0% Hip Fracture 1.4% Reported Risk Factors: [place] (), Neck BMD=0.611, BMI=19.6 (1) FRAX(R) Version 3.08. Fracture probability calculated for an untreated patient. Fracture probability may be lower if the patient has received treatment. Impression: The patient has low bone mass, based on the Left Femoral Neck T-score. The patient has an estimated ten-year risk of hip fracture of 1.4% and an estimated ten-year risk of major fracture of 9%, based on the WHO FRAX algorithm. Discussion: BONE DENSITY IS LOW AT ONE OR MORE SKELETAL SITES. This patient's lowest T-score is low at one or more skeletal sites. It meets the World Health Organization's (WHO) criteria for low bone mass (T-score between -1.0 and -2.5). The patient's 10-year risk of fracture as calculated by FRAX is less than the threshold where pharmacological therapy is recommended by the National Osteoporosis Foundation (NOF). However, all treatment decisions require clinical judgment and consideration of individual patient factors, including patient preferences, comorbidities, previous drug use, risk factors not captured in the FRAX model (e.g., frailty, falls, vitamin D deficiency, increased bone turnover, interval significant decline in bone density) and possible under or overestimation of fracture risk by FRAX. The patient should follow a healthful lifestyle (good nutrition with adequate calcium and vitamin D, and appropriate weight-bearing exercise). Follow-Up: Consider repeating this study in 2 to 3 years to reassess this patient's status, or sooner if there is some new clinical indication. Reported by: TOSIN ROMERO M.D. on 11/08/2022 10:24:00 AM.
== END ==
PROVIDERS: PCP Family Medicine; Referring Provider Neurological Surgery; Visit Provider Neurological Surgery
DX: Z13.820 Encounter for screening for osteoporosis (principal); M50.122 Cervical disc disorder at C5-C6 level with radiculopathy; M85.852 Other specified disorders of bone density and structure, left thigh; E03.9 Hypothyroidism, unspecified; Z78.0 Asymptomatic menopausal state
CPT/HCPCS: 72040; 77080

== ENCOUNTER → 2022-11-12 09:50 | Outpatient (CLI) | payer OTHER, SELFPAY ==
--- NOTE | 2022-11-12 | DI.CT.S_ITS ---
PROCEDURE: CT CERVICAL SPINE WO CON INDICATIONS: Radiculopathy, cervical region TECHNIQUE: Noncontrast 3 mm thick sections acquired from the skull base to the T4 level. Sagittal and coronal reformats were then constructed. For radiation dose reduction, the following was used: automated exposure control, adjustment of mA and/or kV according to patient size. COMPARISON: None. FINDINGS: Image quality: Excellent. Bones: No fractures or dislocations. Visualized superior ribs are intact. Soft tissues: Prevertebral soft tissues are normal in thickness. No paravertebral hematomas. No apical pneumothoraces. Discs: C2-3: No significant disc bulge. The foramina and central canal are patent. C3-4: No significant disc bulge. The foramina and central canal are patent. C4-5: No significant disc bulge. The foramina and central canal are patent. C5-6: Disc space narrowing, endplate degenerative changes with sclerosis, and anterior osteophytes. Uncovertebral hypertrophy, worse on the right. Moderate right and mild left foraminal stenosis. The central canal is patent. C6-7: No significant disc bulge. The foramina and central canal are patent. C7-T1: No significant disc bulge. The foramina and central canal are patent. IMPRESSION: 1. Degenerative disc disease at C5-6 causing moderate right and mild left foraminal stenosis primarily due to endplate degenerative changes and uncovertebral hypertrophy. 2. No central canal stenosis is identified, however this would be better evaluated with MRI. Dictated by: Tolu Pinedo M.D. on 11/12/2022 at 10:12 Approved by: Tolu Pinedo M.D. on 11/12/2022 at 10:17
== END ==
PROVIDERS: PCP Family Medicine; Referring Provider Neurological Surgery; Visit Provider Neurological Surgery
DX: M50.122 Cervical disc disorder at C5-C6 level with radiculopathy (principal); M48.02 Spinal stenosis, cervical region
CPT/HCPCS: 72125

== ENCOUNTER → 2023-03-29 10:03 | Outpatient (CLI) | payer OTHER, SELFPAY | PROVIDERS: PCP Family Medicine; Referring Provider Family Medicine; Visit Provider Family Medicine | DX: I10 Essential (primary) hypertension (principal) | CPT/HCPCS: 36415; 83735 ==

== ENCOUNTER → 2023-04-29 11:13 | Outpatient (CLI) | payer OTHER, SELFPAY ==
--- NOTE | 2023-04-29 | DI.US.S_ITS ---
PROCEDURE: US CAROTID DOPPLER BI INDICATIONS: HYPERTENSION TECHNIQUE: Color and pulse Doppler interrogation was performed of both carotid systems, with image documentation and velocity measurements. COMPARISON: None. FINDINGS: Stenosis calculations are based on SRU (Society of Radiologists in Ultrasound) criteria. Right side: Brachial blood pressure: 122/72 mm Hg. Common carotid artery peak systolic velocity: 95 cm/sec. Internal carotid artery peak systolic velocity: 68 cm/sec. Internal carotid artery end diastolic velocity: 20 cm/sec. External carotid artery peak systolic velocity: 74 cm/sec. ICA/CCA peak systolic ratio: 0.7. Dumont scale imaging description: No significant atherosclerotic plaque Percent internal carotid artery stenosis: None. Vertebral artery: Flow direction is antegrade. Left side: Brachial blood pressure: 118/79 mm Hg. Common carotid artery peak systolic velocity: 114 cm/sec. Internal carotid artery peak systolic velocity: 73 cm/sec. Internal carotid artery end diastolic velocity: 32 cm/sec. External carotid artery peak systolic velocity: 65 cm/sec. ICA/CCA peak systolic ratio: 0.6. Dumont scale imaging description: No significant atherosclerotic plaque Percent internal carotid artery stenosis: None. Vertebral artery: Flow direction is antegrade. IMPRESSION: No hemodynamically significant stenosis of the internal carotid arteries bilaterally. Approved by: Fei Hood M.D. on 04/29/2023 at 14:57
== END ==
LOC: US 11:14
PROVIDERS: PCP Family Medicine; Referring Provider Internal Medicine Cardiovascular Disease; Visit Provider Internal Medicine Cardiovascular Disease
DX: E78.49 Other hyperlipidemia (principal); I10 Essential (primary) hypertension; Z82.49 Family history of ischemic heart disease and other diseases of the circulatory system
CPT/HCPCS: 93880

== ENCOUNTER → 2023-06-03 10:58 | Outpatient (CLI) | payer OTHER, SELFPAY ==
[2023-06-03 12:18] LABS: Cholesterol 160 mg/dL (140-199); HDL Cholesterol 80 mg/dL (40-60); LDL Cholesterol Calculated 44 mg/dL (<100); Triglycerides 178 mg/dL (35-150)
[2023-06-06 07:20] LABS: Lipoprotein (a) 196.8 nmol/L (<75.0)
== END ==
LOC: LAB 10:59
PROVIDERS: PCP Family Medicine; Referring Provider Internal Medicine Cardiovascular Disease; Visit Provider Internal Medicine Cardiovascular Disease
DX: E78.5 Hyperlipidemia, unspecified (principal); E78.49 Other hyperlipidemia; I10 Essential (primary) hypertension
CPT/HCPCS: 36415; 80061; 83695

== ENCOUNTER → 2023-11-08 08:34 | Outpatient (CLI) | payer OTHER, SELFPAY ==
--- NOTE | 2023-11-08 08:35 | DI.MG.S_ITS ---
BILATERAL DIGITAL DIAGNOSTIC MAMMOGRAM 3D/2D: 11/08/2023 CLINICAL: Left breast pain. Comparison is made to exams dated: 08/01/2022 mammogram, 05/16/2021 mammogram, and 04/02/2020 mammogram - [facility]. The breasts are heterogeneously dense, which may obscure small masses (category c / 51-75% glandular tissue). No significant masses, calcifications, or other findings are seen in either breast. IMPRESSION: NEGATIVE There is no abnormality seen in the left breast to correspond with the diffuse pain in the upper outer quadrant, however, clinical followup is recommended. There is no mammographic evidence of malignancy. Return to annual mammogram screening schedule is recommended. Based on the Tyrer Cuzick model (a risk assessment model) the patient's lifetime risk is 15.9% and her 10 year risk is 7.1%. According to the ACR, ACS, and NCCN guidelines, an annual breast MRI exam along with mammogram is recommended if the patient's lifetime risk is 20% or greater. This exam was interpreted at Station ID: [id number]. NOTE: For mammograms, a report in lay terms will be sent to the patient. Approximately 15% of breast malignancies will not be visualized mammographically. In the management of a palpable breast mass, a negative mammogram must not discourage biopsy of a clinically suspicious lesion. Electronically Signed By: Fei escobedo/tristin:11/08/2023 20:38:22 copy to: Isa Card MD, Dr. Isa Card letter sent: Clinical Evaluation ACR BI-RADS Category 1: Negative
== END ==
LOC: MAMMO 08:35
PROVIDERS: PCP Family Medicine; Referring Provider Family Medicine; Visit Provider Family Medicine
DX: R92.2 Inconclusive mammogram (principal); R92.333 Mammographic heterogeneous density, bilateral breasts
CPT/HCPCS: 77066; G0279

== ENCOUNTER → 2023-11-26 06:53 | Outpatient (CLI) | payer OTHER, SELFPAY ==
--- NOTE | 2023-11-26 06:54 | DI.US.S_ITS ---
PROCEDURE: US PELVIC COMPLETE INDICATIONS: LEIOMYOMA OF UTERUS/BREAST PAIN LT TECHNIQUE: Real-time scanning was performed of the pelvic organs, with image documentation. Additional endovaginal scanning was necessary due to incomplete visualization of the adnexal and endometrial structures by transabdominal scanning. COMPARISON: None. FINDINGS: Uterus: Uterus is retroverted and normal in size at 5.8 x 3.2 x 6.7 cm. The myometrium is heterogeneous with diffuse myometrial calcifications. The endometrium measures 3 mm combined thickness. Multiple uterine fibroids are seen. There is a posterior transmural 5.5 x 3.6 x 3.9 cm fibroid. A left anterior intramural fibroid measures 2.0 x 2.1 x 2.4 cm. A right anterior intramural fibroid measures 1.0 x 0.8 x 0.9 cm. Ovaries: Ovaries are not visualized. No suspicious adnexal mass. Other: No pathologic free abdominal or pelvic fluid. IMPRESSION: Multiple uterine fibroids, the largest of which measures up to 5.5 cm in maximum dimension. Approved by: Fei Hood M.D. on 11/26/2023 at 13:13
--- NOTE | 2023-11-26 06:55 | DI.US.S_ITS ---
LIMITED ULTRASOUND OF LEFT BREAST AND AXILLA: 11/26/2023 CLINICAL: Palpable left breast lump 12:00 (felt by clinician since 11-08-23 mammo). Also pain at ax tail. Comparison is made to exams dated: 11/08/2023 mammogram, 08/01/2022 ultrasound, 08/01/2022 mammogram, 05/16/2021 mammogram, 04/02/2020 mammogram, and 01/21/2019 ultrasound - [facility]. Real-time ultrasound of the left breast 12-1 o'clock, and axilla regions was performed. Dumont scale images of the real-time examination were reviewed. No significant abnormalities were seen sonographically in the left breast or the left axilla. IMPRESSION: NEGATIVE No sonographic evidence of malignancy in the region of the palpable abnormality or pain. Exam findings were conveyed to the patient. Patient is advised to monitor for significant change. Clinical follow-up as needed. A 1 year screening mammogram is recommended. Breast MRI could be considered for further evaluation. This exam was interpreted at Station ID: [id number]. Electronically Signed By: Suman Davidson M.D. [facility]/:11/26/2023 07:59:00 Entry: - 11/27/2023 15:45:16 copy to: Isa Card MD, Dr. Isa Card letter sent: Normal Exam ACR BI-RADS Category 1: Negative
== END ==
LOC: US 06:54
PROVIDERS: PCP Family Medicine; Referring Provider Family Medicine; Visit Provider Family Medicine
DX: N64.4 Mastodynia (principal); D25.1 Intramural leiomyoma of uterus
CPT/HCPCS: 76642; 76830; 76856

== ENCOUNTER → 2024-05-19 08:36 | Outpatient (CLI) | payer OTHER, SELFPAY ==
[2024-05-19 09:25] LABS: Cholesterol 165 mg/dL (140-199); HDL Cholesterol 74 mg/dL (40-60); LDL Cholesterol Calculated 72 mg/dL (<100); Triglycerides 95 mg/dL (35-150)
[2024-05-21 03:08] LABS: Lipoprotein (a) 227.8 nmol/L (<75.0)
== END ==
PROVIDERS: PCP Family Medicine; Referring Provider Internal Medicine Cardiovascular Disease; Visit Provider Internal Medicine Cardiovascular Disease
DX: E78.5 Hyperlipidemia, unspecified (principal); E78.49 Other hyperlipidemia; I10 Essential (primary) hypertension
CPT/HCPCS: 36415; 80061; 83695

== ENCOUNTER → 2024-08-26 11:27 | Outpatient (CLI) | payer OTHER, SELFPAY ==
--- NOTE | 2024-08-26 11:29 | DI.US.S_ITS ---
MM diagnostic mammo BI, US breast LT limited: 08/26/2024 BI-RADS: 1 CLINICAL: 64-year old female for bilateral diagnostic mammogram and left diagnostic breast ultrasound. Tyrer-Cuzick lifetime risk of 14.4%. No personal or first- degree family history of breast cancer. Current reported family history of breast cancer: maternal aunt and third maternal aunt. The patient reports testing negative for BRCA gene mutation. The patient reports a palpable abnormality (more than 2 years) and pain (more than 2 years) in the left breast. The patient had a prior left breast biopsy. PRIOR EXAMS 11/08/2023, 08/01/2022, 05/16/2021, 04/02/2020, MAMMOGRAPHY TECHNIQUE: 2D and 3D (tomosynthesis) digital mammographic views obtained, with additional images as needed for full coverage. Current study was also evaluated with a Computer Aided Detection (CAD) system. ULTRASOUND TECHNIQUE Real-time kwok scale imaging of the area of clinical interest was performed with image documentation. TARGETED Right Breast Ultrasound: Real-time ultrasound exam was performed focused to area of clinical and/or imaging concern. DENSITY C. The breasts are heterogeneously dense, which may obscure small masses. MAMMOGRAPHY FINDINGS Right: No suspicious mass, asymmetry, microcalcification, or other abnormality seen. Left (finding-1): Upper Inner Quadrant, Anterior depth: There is no suspicious mammographic finding to account for concern by the patient of a palpable lump. No suspicious mass, asymmetry, microcalcification, or other abnormality seen. Left (finding-2): Inner at 9:00, Anterior depth: There is no suspicious mammographic finding to account for concern by the patient of pain/tenderness. No suspicious mass, asymmetry, microcalcification, or other abnormality seen. ULTRASOUND FINDINGS Left (finding-1): Upper Inner at 11:00, 4 cm from nipple: There is no sonographic abnormality to account for concern by the patient of a palpable lump. Left (finding-2): Inner at 9:00: The area from 9 o'clock, 1 to 7 cm from the nipple was scanned. There is no sonographic abnormality to account for concern by the patient of pain/tenderness. IMPRESSION: * No evidence of malignancy. RECOMMENDATIONS Bilateral * Annual screening mammography. COMMENTS: Findings and recommendations were conveyed to the patient during today's evaluation. OVERALL ASSESSMENT CATEGORY BI-RADS-1: Negative. The [employer] recommends annual screening mammography beginning at age 40 for women with average risk of breast cancer. ELECTRONICALLY SIGNED: Lluvia Aquino M.D. on 08/26/2024 at 04:47:09 PM PT Interpreting Station ID: [id number]
== END ==
LOC: MAMMO 11:28
PROVIDERS: PCP Family Medicine; Referring Provider Family Medicine; Visit Provider Family Medicine
DX: N64.4 Mastodynia (principal); N63.20 Unspecified lump in the left breast, unspecified quadrant; R92.333 Mammographic heterogeneous density, bilateral breasts; Z80.3 Family history of malignant neoplasm of breast
CPT/HCPCS: 76642; 77066; G0279

== ENCOUNTER → 2024-11-16 11:42 | Outpatient (CLI) | payer OTHER, SELFPAY ==
--- NOTE | 2024-11-16 13:05 | DI.MRI.S_ITS ---
MR breast BI wo/w con: 11/16/2024. BI-RADS: 3 CLINICAL: 64-year old female for bilateral diagnostic breast MRI. No personal or first-degree family history of breast cancer. Current reported family history of breast cancer: maternal aunt and third maternal aunt. The patient reports testing negative for BRCA gene mutation. The patient reports a palpable abnormality (more than 2 years) and pain (more than 2 years) in the left breast. The patient had a prior left breast biopsy. PRIOR EXAMS: Mammogram(s): 08/26/2024. Breast Ultrasound(s): 08/26/2024. 11 Other Exams on 11/26/2023, 11/08/2023, 08/01/2022, 05/16/2021, 04/02/2020, 01/21/2019, 12/23/2018, 12/24/2017. MRI TECHNIQUE: Bilateral breast MRI was performed on a 1.5 Cait magnet using a dedicated breast coil with mild compression. Axial T1 and T2 STIR sequences were obtained. Dynamic contrast enhanced VIBRANT fat-suppressed sequences were obtained. Delayed sagittal high resolution or sagittal reconstructed isotropic sequence was also obtained. Subtraction images and maximum intensity projection images were obtained. The study was evaluated using [employer] software. IV Contrast: 20 ml ProHance. FIBROGLANDULAR TISSUE Bilateral: C. Heterogeneous fibroglandular tissue. BACKGROUND PARENCHYMAL ENHANCEMENT Bilateral: Minimal symmetrical background parenchymal enhancement. BREAST FINDINGS Right: Central, Middle depth, measuring 0.5 x 0.3cm: There is an oval enhancing mass with kinetic enhancement curve showing mixed pattern (persistent, plateau) on delayed phase. On non-contrast sequences this mass shows low signal intensity on T1-weighted sequences and high signal intensity on STIR/T2-weighted sequences. This mass is incidental. This oval mass likely represents a lymph node. No mammographic correlate seen. No other suspicious mass, non-mass enhancement, or architectural distortion. No axillary or internal mammary chain adenopathy. Left: Upper Inner at 11:00, 4 cm from nipple: There is no suspicious mass or non-mass enhancement. No suspicious architectural distortion. No skin or nipple abnormalities. No internal mammary chain or axillary adenopathy. No MRI correlate for area of pain. There were no mammographic or sonographic abnormalities identified in this region. Left: Inner at 9:00: No MRI correlate for area of pain. There were no mammographic or sonographic abnormalities identified in this region. CHEST FINDINGS Visualized portions of the chest appear unremarkable. ABDOMEN FINDINGS Visualized portions of the upper abdomen appear unremarkable. Multiple scattered hepatic cysts. IMPRESSION: Right (Mass): Central, Middle depth, measuring 0.5 x 0.3cm * Probably Benign. Left * No evidence of malignancy. RECOMMENDATIONS Right: Central, Middle depth * Further evaluation with diagnostic ultrasound (If a correlate is identified on second look ultrasound, then recommend short interval follow up US in 6 months versus repeat MRI in 6 months if no correlate is found on US.). OVERALL ASSESSMENT CATEGORY BI-RADS-3: Probably Benign. ELECTRONICALLY SIGNED: Leland Leon M.D. on 11/17/2024 at 11:13:55 PM PT Interpreting Station ID: [id number]
[2024-11-16 13:23] LABS: Appearance Urine UA CLEAR; Bilirubin Urine UA NEGATIVE (NEGATIVE); Color Urine UA YELLOW; Glucose Urine UA NEGATIVE (Negative); Ketones Urine UA NEGATIVE (NEGATIVE); Leukocyte Esterase Urine UA NEGATIVE (NEGATIVE); Nitrite Urine UA NEGATIVE (Negative); Occult Blood Urine UA NEGATIVE (Negative); Protein Urine UA NEGATIVE (Negative); Specific Gravity Urine UA 1.010 (1.000-1.035); Urobilinogen Urine UA 0.2 E.U./dL (0.2)
[2024-11-16 13:26] LABS: pH Urine UA 6.0 (4.5-8.0)
[2024-11-16 13:28] LABS: Culture Indicated Urine Cult Not Indicated
== END ==
PROVIDERS: PCP Family Medicine; Referring Provider Family Medicine; Visit Provider Family Medicine
DX: N63.41 Unspecified lump in right breast, subareolar (principal); N64.4 Mastodynia; R92.333 Mammographic heterogeneous density, bilateral breasts; R30.0 Dysuria; Z80.3 Family history of malignant neoplasm of breast
CPT/HCPCS: 77049; 81001; A9579

== ENCOUNTER → 2024-12-31 13:26 | Outpatient (CLI) | payer OTHER, SELFPAY ==
--- NOTE | 2024-12-31 13:27 | DI.US.S_ITS ---
US breast RT limited: 12/31/2024. BI-RADS: 1 CLINICAL: 64-year old female for right diagnostic breast ultrasound that is a follow-up to diagnostic breast MRI on 11/16/2024. Tyrer-Cuzick lifetime risk of 14.4%. No personal or first-degree family history of breast cancer. Current reported family history of breast cancer: maternal aunt and third maternal aunt. The patient reports testing negative for BRCA gene mutation. PRIOR EXAMS: 11/16/2024, 08/26/2024, 11/26/2023, 11/08/2023, 08/01/2022, 05/16/2021, 04/02/2020. ULTRASOUND TECHNIQUE TARGETED Right Breast Ultrasound: Real-time ultrasound exam was performed focused to area of clinical and/or imaging concern. Real-time kwok scale imaging of the area of clinical interest was performed with image documentation. ULTRASOUND FINDINGS Right: Central, Retroareolar, previously measuring (11/16/2024) 0.5 x 0.3 cm: There is no sonographic abnormality to account for imaging concern on MRI. Additional images were taken by the shoe stitcher along the 5 to 7 o'clock axis. There is no suspicious sonographic finding. IMPRESSION: Right * No evidence of malignancy. RECOMMENDATIONS Right: Central, Retroareolar * Six month followup with diagnostic breast MRI. COMMENTS: Findings and recommendations were conveyed to the patient during today's evaluation. OVERALL ASSESSMENT CATEGORY BI-RADS-1: Negative. ELECTRONICALLY SIGNED: Lluvia Aquino M.D. on 12/31/2024 at 02:36:48 PM PT Interpreting Station ID: [id number]
== END ==
LOC: US 13:26
PROVIDERS: PCP Family Medicine; Referring Provider Family Medicine; Visit Provider Family Medicine
DX: R92.8 Other abnormal and inconclusive findings on diagnostic imaging of breast (principal); Z80.3 Family history of malignant neoplasm of breast
CPT/HCPCS: 76642

== ENCOUNTER → 2025-02-09 08:44 | Outpatient (CLI) | payer OTHER, SELFPAY ==
--- NOTE | 2025-02-09 08:47 | DI.US.S_ITS ---
PROCEDURE: US ABDOMEN LIMITED INDICATIONS: RUQ pain, elevated ALT TECHNIQUE: Real-time scanning was performed of the abdominal and retroperitoneal organs, with image documentation. COMPARISON: None. FINDINGS: Liver: Liver is normal in size and heterogeneous in echotexture. No focal sonographic lesion. Gallbladder: No gallstones. No wall thickening. No pericholecystic edema. Negative sonographic Lopez's sign. Biliary ducts: Intrahepatic bile ducts are non-dilated. Extrahepatic bile duct caliber measures 5 mm. Normal is 6-7 mm or less in diameter, or 10 mm or less post-cholecystectomy. Pancreas: Visualized portions of the pancreas are sonographically normal. Miscellaneous: No free abdominal fluid. IMPRESSION: Heterogeneous hepatic echotexture with mild can be seen with hepatocellular dysfunction such as hepatic steatosis. Normal biliary tree. Dictated by: Magen Dominguez M.D. on 02/09/2025 at 15:21 Approved by: Magen Dominguez M.D. on 02/09/2025 at 15:22
--- NOTE | 2025-02-09 08:48 | DI.RAD.S_ITS ---
PROCEDURE: XR LUMBAR SPINE 2-3V INDICATIONS: PAIN TECHNIQUE: 3 views of the lumbar spine were acquired. COMPARISON: [facility], CR, XR THORACIC SPINE 2V, 02/09/2025, 9:27. FINDINGS: Bones: 5 [id number] vertebrae are present. There is normal bony alignment. No vertebral body compression fractures. Mild degenerative changes. No suspicious bony lesions. Soft tissues: Overlying bowel gas pattern is normal. No suspicious soft tissue calcifications. Presumed calcified fibroid in the left pelvis measures 5.4 cm. IMPRESSION: No compression fracture. Dictated by: Suman Davidson M.D. on 02/09/2025 at 16:18 Approved by: Suman Davidson M.D. on 02/09/2025 at 16:20
--- NOTE | 2025-02-09 08:48 | DI.RAD.S_ITS ---
PROCEDURE: XR THORACIC SPINE 2V INDICATIONS: PAIN TECHNIQUE: 2 views of the thoracic spine were acquired. COMPARISON: [facility], CR, XR LUMBAR SPINE 2-3V, 02/09/2025, 9:27. FINDINGS: Bones: No fractures or dislocations. No suspicious bony lesions. Mild degenerative changes. Demonstrable by disc space height loss and osteophytic lipping. 12 pairs of ribs are noted, and appear intact where visualized. Soft tissues: No paravertebral stripe thickening. Visualized portions of the lungs are clear. IMPRESSION: No compression fracture. Dictated by: Suman Davidson M.D. on 02/09/2025 at 16:16 Approved by: Suman Davidson M.D. on 02/09/2025 at 16:18
== END ==
LOC: US 08:46
PROVIDERS: PCP Family Medicine; Referring Provider Family Medicine; Visit Provider Family Medicine
DX: M54.6 Pain in thoracic spine (principal); M54.50 Low back pain, unspecified; R10.11 Right upper quadrant pain; R74.01 Elevation of levels of liver transaminase levels
CPT/HCPCS: 72070; 72100; 76705